=== PATIENT | male | born 1990 | race Two or more races ===

== ENCOUNTER → 2021-02-05 | Emergency (ER) | payer OTHER ==
[~2021-02-05] VITALS: Ht 188 cm; Wt 93.0 kg
== END | disposition home or self-care (01) ==
LOC: ER 21:13
DX: S61.021A Laceration with foreign body of right thumb without damage to nail, initial encounter (principal); W25.XXXA Contact with sharp glass, initial encounter; Y93.89 Activity, other specified; Y92.098 Other place in other non-institutional residence as the place of occurrence of the external cause; Y99.8 Other external cause status